=== PATIENT | male | born 1990 | race African-American/Black ===

== ENCOUNTER 2016-07-24 10:47 | Emergency (ER) | payer SELFPAY ==
[~2016-07-24] VITALS: Ht 165.1 cm; Wt 54.0 kg
[2016-07-24] MEDS ORDERED: KETOROLAC 60MG/2ML VIAL IM ONE (12:15)
[2016-07-24 12:53] VITALS: BP 110/68
== END 2016-07-24 12:54 | disposition home or self-care (01) ==
LOC: ER 11:05
DX: R07.89 Other chest pain (principal); F17.200 Nicotine dependence, unspecified, uncomplicated; F12.10 Cannabis abuse, uncomplicated
CPT/HCPCS: 96372; 99283; J1885; Z7610